=== PATIENT | male | born 1945 | race Caucasian/White ===

== ENCOUNTER 2021-06-19 11:03 | Day surgery (SDC) | payer MEDICARE, SELFPAY ==
--- NOTE | 2021-06-15 12:48 | EKG12_ITS ---
Test Reason : PRE-OP Blood Pressure : / mmHG Vent. Rate : 071 BPM Atrial Rate : 071 BPM P-R Int : 162 ms QRS Dur : 090 ms QT Int : 410 ms P-R-T Axes : 067 066 058 degrees QTc Int : 445 ms Normal sinus rhythm Normal ECG Confirmed by MALORIE OLIVER, BUDDY ([id number]), sound editor LEAH GONZALEZ ([id number]) on 06/16/2021 7:55:49 AM Referred By: Damon Cueva Confirmed By:BUDDY ESPANA MD
[2021-06-15 13:35] LABS: Hematocrit 38.8 % (40-54); Hemoglobin 12.4 g/dL (13.0-16.5); Mean Corpuscular Hgb 30.1 pg (27.0-32.0); Mean Corpuscular Volume 94.2 fL (80-94); Mean Platelet Vol. 9.6 fl (6.2-12.0); Platelet Count 345 K/mm3 (150-450); RBC Distribution Width CV 13.6 % (11.6-14.6); RBC Distribution Width SD 47.5 fl (35.1-43.9); Red Blood Count 4.12 M/mm3 (4.6-6.2); White Blood Count 10.2 K/mm3 (4.4-11.0)
[2021-06-15 13:47] LABS: International Normalized Ratio 1.1; Prothrombin Time (Protime)PT. 13.2 SECONDS (11.7-14.9)
[2021-06-15 13:48] LABS: Partial Thromboplast Time 26.9 Seconds (24.1-36.2)
[2021-06-15 14:16] LABS: AST(SGOT) 37 U/L (15-37); Alanine Aminotransfer ALT/SGPT 61 U/L (16-61); Alkaline Phosphatase 76 U/L (45-117); Anion Gap 3 (5-15); BUN 22 mg/dL (7-18); BUN/Creat Ratio 23.1 RATIO (10-20); Bilirubin, Direct 0.11 mg/dL (0.00-0.30); Chloride 105 mmol/L (98-107); Creatinine, Serum 0.95 mg/dL (0.70-1.30); EST Glomerular Filtration Rate 82 mL/min (>60); Est Glom Filt Rate - Afr Amer 99 mL/min (>60); Globulin 4.1 g/dL (2.2-4.2); Glucose 145 mg/dL (74-106); Potassium 4.3 mmol/L (3.5-5.1); Protein, Total 7.1 g/dL (6.4-8.2); Sodium Level 138 mmol/L (136-145)
[2021-06-19] VITALS (7 sets, daily range): BP systolic 124–164; BP diastolic 58–70; PULSE 61–85; RESP 16; TEMP 35.5–37; O2SAT 95–99; BMI 26.5
[2021-06-19] MEDS: Lactated Ringers 1,000 ML 100 ML IV (11:45)
[2021-06-19 12:01] LABS: Bedside Glucose 224 mg/dL (70-110)
--- NOTE | 2021-06-19 13:10 | PROS_PTH ---
PATIENT: SHANIQUA BARTH [place] [facility] [id number] AGE/SX: 75/M ROOM: RE06/19/[address]: Dr. Damon Cueva MD : [id number] BED: DIS: 06/19/2021 SPEC #: [id number] RECD: 06/19/21 15:47 STATUS: TAMIA THRASHER #: [id number] JAMESON: 06/19/21 13:[address]: Damon Cueva DEPT: SURGICAL PATHOLOGY RECD BY: Anibal Stafford ENTERED: 06/22/21 11:00 SP TYPE: TURP OTHR DR: Dr. Jay Hamilton MD Tissues: Prostate, NOS Procedures: Surgery Specimen Level IV HEADER OPERATION: Cysto, TUR prostate, Olymp[employer] PRE-OP DIAGNOSIS: BPH with lower urinary tract symptoms, diverticulum of bladder, obstructive and reflux uropathy TISSUE SUBMITTED: Prostate chips MICROSCOPIC DIAGNOSIS Prostate chips, TUR: Benign prostatic hyperplasia, glandular and stromal type. Mild acute and chronic inflammation. RAUDEL:beatrice 06/23/2021 MICROSCOPIC DESCRIPTION Slides are reviewed. GROSS DESCRIPTION Received is one container labeled with the patient's name and designated prostate chips. The specimen consists of multiple irregular fragments of pink-cook, rubbery, soft tissue that in aggregate weigh 4.3 gm and measure in aggregate 3.5 x 3.5 x 1 cm. The entire specimen is submitted in four cassettes. / RAUDEL:beatrice 06/22/21 TC:5 CPT: 55386
[2021-06-19] MEDS: Cefazolin 2 GM in 0.9% Normal Saline 100 ML IV (13:48)
[2021-06-19] MEDS: Lactated Ringers 1,000 ML 75 ML IV (14:35)
--- NOTE | 2021-06-19 14:36 | OP.PCM_ITS ---
Report of Operation Date of Procedure: 06/19/21 Pre-Operative Diagnosis: BPH with obstruction, hypotonic bladder Post-Operative Diagnosis: Same Surgery/Procedure Performed:: Transurethral resection of the prostate Description of Surgical Findings:: In the preoperative setting I discussed with the patient how the surgery would be done with expect afterwards. We discussed how a prostate resection is done and we discussed the risk of the surgery including, bleeding, infection, retrograde ejaculation, changes with ejaculation or intercourse,. We discussed the possibility that the resection of the prostate may not alleviate his urinary symptoms. We discussed the small risk of developing scar tissue along the urethral channel and strictures. We also discussed the chance of the prostate could grow back and he may need further spencer rgery or treatment in the future for prostate problems. Patient was taken back to the operating room, timeout procedure was performed, he was identified and marked and placed on the operating room table. He underwent general anesthesia. He was placed in dorsolithotomy position. Penis and testicles were prepped and draped in usual sterile fashion. Went into the bladder using the visual obturator with a resectoscope. Once inside the bladder identified the right and left ureteral orifice. Inside the bladder he had a very distended bladder with a heavily trabeculated lot of saccules and div erticuli within the bladder very stretched out bladder from chronic obstruction, he had a very short length prostate which I proceeded with the resection obstructed but short length prostate. I then identified the prostate and the anatomy of the prostate. I marked out the area of the sphincter and the verumontanum was identified. I then proceeded with the prostate resection first resected the median lobe. And then resected the right lobe of the prostate. Then to resect the left lobe of the prostate. I then resected the apical tissue of the prostate. Made sure that there was no injury to the sphincter or the verumontanum was still intact. At the end of the resection all the chips were Ellik out of the bladder. I then identified the left and right ureteral orifice and these were confirmed to be in good position and effluxing and not injured. The resectoscope was removed, a 22 German catheter was placed into the bladder on continuous irrigation. And the urine was fairly light pink color and draining normally. He was taken back to the PACU in good condition. Drains: 20 fr mane Admit VTE Documentation VTE Present on Admission: No VTE Mechan Device Prophylaxis: SCD's
--- NOTE | 2021-06-19 14:36 | DCINST_ITS ---
Discharge Instructions Diet Discharge Diet: No restrictions Activity Discharge Activity: Return to Normal Activity and May Not Drive (while taking narcotic pain medications.) Dressing / Incision Call your doctor if you observe: Fever of 101 or Higher Catheter: Garrett to leg bag and Garrett to large bag Drain: Stover Follow Up Care Please Follow Up With: Damon Cueva MD When: Call [phone] for an appointment Test Results: Test results from this visit will be discussed in further detail at your follow-up appointment, if applicable. Discharge Plan Admission Primary Reason for Your Visit: turp Attending Provider: Damon Cueva Primary Care Provider: Jay Hamilton Discharge Orders/Prescriptions Prescriptions: New ciprofloxacin HCl [Cipro] 500 mg tablet 500 mg PO BID Qty: 14 RF: 0 oxycodone-acetaminophen 5-325 mg tablet 1 tab PO Q4H PRN (Reason: pain) 7 Days Qty: 10 RF: 0 Continued bisoprolol-hydrochlorothiazide 10-6.25 mg tablet 1 tab PO DAILY RF: 0 tamsulosin 0.4 mg capsule 0.4 mg PO QHS RF: 0 ramipril 10 mg capsule 20 mg PO DAILY RF: 0 ezetimibe 10 mg tablet 10 mg PO DAILY RF: 0 dutasteride 0.5 mg capsule 0.5 mg PO QHS RF: 0 rosuvastatin [Crestor] 40 mg Tablet 40 mg PO DAILY RF: 0 insulin lispro [Humalog U-100 Insulin] 100 unit/mL solution See Rx Instructions .ROUTE .COMPLEX RF: 0 Held aspirin 81 mg Tablet 81 mg PO DAILY RF: 0 Hold Instructions: Resume on 06/26/21. Referrals / Follow Up: Damon Cueva MD [STAFF PHYSICIAN] - Jay Hamilton MD [Primary Care Provider] - Disposition Disposition (needs filled in before D/C Order can be placed): Home, Self Care
[2021-06-19] MEDS: Ketorolac 15 MG/ML Vial IV (14:48)
[2021-06-19 14:51] LABS: Bedside Glucose 117 mg/dL (70-110)
== END 2021-06-19 17:05 | disposition home or self-care (01) ==
LOC: SDC 11:03 → AC 11:04
PROVIDERS: Anesthesiology; PCP Family Medicine; Referring Provider Urology; Visit Provider Urology
PROC: (CPT 52601; principal; 2021-06-19 13:00)
DX: N40.1 Benign prostatic hyperplasia with lower urinary tract symptoms (principal); N13.8 Other obstructive and reflux uropathy; N31.2 Flaccid neuropathic bladder, not elsewhere classified; E78.00 Pure hypercholesterolemia, unspecified; I10 Essential (primary) hypertension; M19.90 Unspecified osteoarthritis, unspecified site; R06.02 Shortness of breath; Z79.82 Long term (current) use of aspirin; Z79.899 Other long term (current) drug therapy
CPT/HCPCS: 00914; 52601; 36415; 80048; 80076; 82962; 83036; 85027; 85610; 85730; 88305; 93005; J7120; J2405

== ENCOUNTER → 2022-11-09 | Outpatient (CLI) | payer MEDICARE, SELFPAY ==
[2022-11-09 15:58] LABS: PSA,Total- Diagnostic 0.32 ng/mL (0.0-4.0)
== END | disposition home or self-care (01) ==
PROVIDERS: PCP Family Medicine; Visit Provider Urology
DX: N40.1 Benign prostatic hyperplasia with lower urinary tract symptoms (principal)
CPT/HCPCS: 36415; 84153